=== PATIENT | female | born 1995 | race Caucasian/White ===

== ENCOUNTER 2025-03-02 12:11 | Outpatient (CLI) | payer BC, SELFPAY ==
[2025-03-02 12:34] LABS: Hematocrit 39.2 % (37.0-47.0); Hemoglobin 13.0 g/dL (12.0-15.0); Immature Granulocyte Percent A 2.6 % (0-0.5); Lymphocytes Absolute Auto 2.37 K/mm3 (0.9-3.2); Mean Corpuscular HGB Conc 33.2 g/dl (32-36); Mean Corpuscular Hemoglobin 29.5 pg (26-34); Mean Corpuscular Volume 88.9 fl (80-100); Nucleated Red Blood Cells Absolute Auto 0.000 K/mm3 (0.0-0.012); Nucleated Red Blood Cells Perc 0.0 % (0.0-0.2); Platelet Count Result 241 k/mm3 (150-375); Red Blood Count 4.41 M/mm3 (4.2-5.4); White Blood Count 12.3 K/mm3 (4.5-10.0)
[2025-03-02 12:54] LABS: Alanine Aminotransferase 11 U/L (6-35); Albumin Level 3.5 g/dL (3.5-5.1); Alkaline Phosphatase 98 U/L (38-126); Anion Gap 8 mmol/L (4-12); Aspartate Amino Transferase 19 U/L (14-36); Bilirubin,Total 0.3 mg/dL (0.2-1.3); Blood Urea Nitrogen 6 mg/dL (7-17); Calcium 9.3 mg/dL (8.4-10.2); Carbon Dioxide 19 mmol/L (22-30); Chloride 108 mmol/L (98-107); Estimated Glomerular Filt Rate > 60; Glucose 114 mg/dL (65-110); Potassium 3.9 mmol/L (3.4-5.0); Sodium 135 mmol/L (137-145); Total Protein 6.6 g/dL (6.3-8.2); Uric Acid 4.1 mg/dL (2.5-7.5)
== END 2025-03-02 12:12 | disposition home or self-care (01) ==
LOC: ANHLAB 12:18
PROVIDERS: Visit Provider Advanced Practice Midwife
DX: O13.9 Gestational [pregnancy-induced] hypertension without significant proteinuria, unspecified trimester (principal); Z3A.00 Weeks of gestation of pregnancy not specified
CPT/HCPCS: 36415; 80053; 84550; 85025

== ENCOUNTER 2025-03-06 13:42 | Observation (INO) | payer BC, SELFPAY ==
--- NOTE | 2025-03-06 13:42 | OBADM ---
This patient, Moris Salazar, admitted to the OB room [facility] Post [facility] for observation. Patient/family oriented to hospital policies and general routines including ID bracelet, bed and alarms, visiting hours, pain management, procedures, bathroom and other care routines, personal items, smoking policy, room service/diet, and visiting hours. Patient/Family are encouraged to report perceived risks to care and to ask questions if they do not understand what they are told or what they should do.
[2025-03-06 14:13] VITALS: BP 132/82; PULSE 95
[2025-03-06 14:28] VITALS: BMI 37.1
[2025-03-06 14:37] LABS: Add Urine Microscopic? YES; Appearance Urine Clear (Clear); Glucose Urine UA Negative (Negative); Leukocyte Esterase Ur Trace LEU/UL (Negative); Need Manual Microscopic Reviewed; Nitrate Urine Negative (Negative); Non Pathogenic Casts 0-2; Specific Grav Ur 1.015 (1.001-1.035)
--- NOTE | 2025-03-07 07:35 | PM.OBTRLD ---
OB - Triage/Final Diagnosis Visit Information Date of evaluation: 03/06/25 Reason for evaluation: threatened labor Comments/Additional reasons for admission: I have assessed the risk for this patient, Moris Salazar, and determined that she would benefit from observation care. Evaluation Laboratory results: Laboratory Tests 03/06/25 14:06 Urine Color Yellow Urine Appearance Clear Urine pH 6.0 Ur Specific [place] 1.015 Urine Protein Negative Urine Glucose (UA) Negative Urine Ketones Negative Ur Blood (Man) Negative Urine Nitrate Negative Urine Bilirubin Negative Urine Urobilinogen 0.2 Ur Leukocyte Esterase Trace H Add Ur Microanalysis Reviewed Urine RBC 0-2 Urine WBC 6-10 H Ur Squamous Epith Cells Few Urine Bacteria 2+ H Urine Casts 0-2 Vital signs: Vital Signs - 24 hr 03/06/25 14:13 03/06/25 14:28 Pulse Rate 95 Blood Pressure 132/82 Oxygen Delivery Room Air
== END 2025-03-06 15:25 | disposition home or self-care (01) ==
PROVIDERS: Advanced Practice Midwife; Admitting Provider Obstetrics & Gynecology; Visit Provider Obstetrics & Gynecology
DX: O47.03 False labor before 37 completed weeks of gestation, third trimester (principal); Z3A.35 35 weeks gestation of pregnancy
CPT/HCPCS: 81001; 87086; G0378; G0379

== ENCOUNTER 2025-03-14 00:01 | Inpatient (IN) | payer BC, SELFPAY ==
[2025-03-14] VITALS (368 sets, daily range): BP systolic 90–201; BP diastolic 43–187; PULSE 61–173; TEMP 36.1–37.4; O2SAT 83–100; BMI 37.5
[2025-03-14 01:25] LABS: Hematocrit 42.1 % (37.0-47.0); Hemoglobin 14.1 g/dL (12.0-15.0); Immature Granulocyte Percent A 2.0 % (0-0.5); Lymphocytes Absolute Auto 2.94 K/mm3 (0.9-3.2); Mean Corpuscular HGB Conc 33.5 g/dl (32-36); Mean Corpuscular Hemoglobin 29.6 pg (26-34); Mean Corpuscular Volume 88.3 fl (80-100); Nucleated Red Blood Cells Absolute Auto 0.000 K/mm3 (0.0-0.012); Nucleated Red Blood Cells Perc 0.0 % (0.0-0.2); Platelet Count Result 225 k/mm3 (150-375); Red Blood Count 4.77 M/mm3 (4.2-5.4); White Blood Count 12.9 K/mm3 (4.5-10.0)
[2025-03-14 01:29] LABS: Alanine Aminotransferase 15 U/L (6-35); Albumin Level 3.6 g/dL (3.5-5.1); Alkaline Phosphatase 105 U/L (38-126); Anion Gap 8 mmol/L (4-12); Aspartate Amino Transferase 26 U/L (14-36); Bilirubin,Total 0.3 mg/dL (0.2-1.3); Blood Urea Nitrogen 10 mg/dL (7-17); Calcium 9.6 mg/dL (8.4-10.2); Carbon Dioxide 17 mmol/L (22-30); Chloride 106 mmol/L (98-107); Estimated Glomerular Filt Rate > 60; Glucose 105 mg/dL (65-110); Potassium 4.0 mmol/L (3.4-5.0); Sodium 131 mmol/L (137-145); Total Protein 7.1 g/dL (6.3-8.2); Uric Acid 5.2 mg/dL (2.5-7.5)
--- NOTE | 2025-03-14 01:45 | WPDOBADMIT ---
Obstetrics - Admit Note Admission Note: record reviewed. No pertinent additions to the history and/or any subsequent changes in the physical findings that are not consistent with the expected course of the were found. Additions to the history and/or subsequent changes in the physical findings follow. IOL GHTN, anticipate vaginal delivery
[2025-03-14 02:01] LABS: Syphilis IgG/IgM Antibody Non-Reactive (Nonreactive)
--- NOTE | 2025-03-14 07:55 | PM.OBPNLAB ---
Pain Control Date/time seen: 03/14/25 07:55 Comments: SVE /-1 AROM moderate amount of clear odorless fluid, FHR category 1 contractions irregular
--- NOTE | 2025-03-14 08:13 | LDADM ---
This patient, Moris Salazar, was admitted to Labor/Delivery/Recovery 104 on 03/14/25 at 00:01. Plans for labor, pain management and were discussed with patient. Patient/family oriented to hospital policies and general routines including ID bracelet, bed and alarms, visiting hours, pain management, procedures, bathroom and other care routines, personal items, smoking policy, room service/diet and guest tray routines, security routines, and visiting hours. Patient/Family are encouraged to report perceived risks to care and to ask questions if they do not understand what they are told or what they should do. See OBIX for further documentation.
[2025-03-14] MEDS: LACTATED RINGERS 1,000 ML 125 ML IV CONT ×3 (09:49→20:18)
[2025-03-14] MEDS: OXYTOCIN 30 UNITS/NS 500 ML 30 UNITS/500 ML BAG IV CONT (09:50)
--- NOTE | 2025-03-14 10:19 | P.PNAN_ITS ---
Anes - Initial Pre Proc Eval Procedure: labor epidural Date/Time: 03/14/25 10:19 Surgeon: Rico Clifton MD Pre Op Diagnosis: labor pain Pre Op Diagnosis: IOL Patient Data Age: 30 Gender: F Height: 1.68 m Weight: 105.5 kg Last Vital Signs Temp 36.9 C 03/14/25 09:53 Pulse 79 03/14/25 10:01 BP 134/66 03/14/25 10:01 Pulse Ox 100 03/14/25 10:15 O2 Del Method Room Air 03/14/25 08:01 Allergies Allergy/AdvReac Type Severity Reaction Status Date / Time No Known Allergies Allergy Verified 03/14/25 08:09 Home Medications ?Medication ?Instructions ?Recorded ?Confirmed ?Type famotidine 10 mg tablet (Acid 10 mg PO DAILY 03/06/25 03/14/25 History Controller) vit no.95-ferrous 1 tablet PO DAILY 03/06/25 03/14/25 History fumarate 28 mg-folic acid 800 mcg tablet () sumatriptan succinate 25 mg tablet 25 mg PO .every 8 h rs prn 03/06/25 03/14/25 History valacyclovir 500 mg tablet 500 mg PO DAILY 03/06/25 History Laboratory Tests 03/14/25 03/14/25 03/14/25 00:45 00:45 02:09 WBC 12.9 H K/mm3 (4.5-10.0) RBC 4.77 M/mm3 (4.2-5.4) Hgb 14.1 g/dL (12.0-15.0) Hct 42.1 % (37.0-47.0) MCV 88.3 fl (80-100) MCH 29.6 pg (26-34) MCHC 33.5 g/dl (32-36) RDW 14.1 % (11.5-14.5) Plt Count 225 k/mm3 (150-375) MPV 11.9 H fl (7.4-10.4) Immature Gran % (Auto) 2.0 H % (0-0.5) Neut % (Auto) 68.4 % (45.5-73.1) Lymph % (Auto) 22.7 % (18.3-44.2) [place] % (Auto) 5.4 % (2.6-8.5) Eos % (Auto) 1.0 % (0-4.4) Baso % (Auto) 0.5 % (0.2-1.2) Lymph # (Auto) 2.94 K/mm3 (0.9-3.2) Moffat # (Auto) 0.7 H K/mm3 (0.1-0.6) Eos # (Auto) 0.1 K/mm3 (0-0.3) Baso # (Auto) 0.1 K/mm3 (0.0-0.1) Abs Immat Gran (auto) 0.26 H K/mm3 (0.00-0.031) Absolute Neuts (auto) 8.8 H K/mm3 (1.3-6.7) Absolute Nucleated RBC 0.000 K/mm3 (0.0-0.012) Nucleated RBC % 0.0 % (0.0-0.2) Sodium 131 L mmol/L (137-145) Potassium 4.0 mmol/L (3.4-5.0) Chloride 106 mmol/L (98-107) Carbon Dioxide 17 L mmol/L (22-30) Anion Gap 8 mmol/L (4-12) BUN 10 mg/dL (7-17) Creatinine 0.63 L mg/dL (0.7-1.0) Estim Creat Clear Calc Not Reportable Estimated GFR > 60 (59 - ) Glucose 105 mg/dL (65-110) Uric Acid 5.2 mg/dL Cancelled (2.5-7.5) Calcium 9.6 mg/dL (8.4-10.2) Total Bilirubin 0.3 mg/dL (0.2-1.3) AST 26 U/L (14-36) ALT 15 U/L (6-35) Alkaline Phosphatase 105 U/L (38-126) Total Protein 7.1 g/dL (6.3-8.2) Albumin 3.6 g/dL (3.5-5.1) Syphilis IgG/IgM Ab Non-reactive (Nonreactive) Blood Type A Positive Antibody Screen Negative Patient hx anesthesia problems: none Family hx anesthesia problems: none Results Review: All pre-operative results and documents have been reviewed as part of the pre- operative evaluation. [facility] Family History Family History (Updated 03/14/25 @ 08:15 by Sary Pires RN) Grandparent Breast cancer Diabetes mellitus Other No pertinent family history in first degree relatives Social History Social History Smoking status: Never smoker Second hand tobacco smoke exposure: No Substance use: never Lack of Transportation: No Lack of Food: Never True Current Housing: I Have Housing Concerned About Future Housing: No Difficulty Paying Gas/Electric Bills: No Difficulty Paying for Meds: No Currently Unemployed: No Education: Associate Degree Difficulty w/ Childcare or Family Care: No Spiritual care concerns: No Anes - Eval Final PreProcedure Day of Procedure 03/14/25 10:19 Patient weight: obese ASA classification: II Anesthetic plan: proceed Anesthesia type and monitoring: regional epidural and standard monitoring Results Review: All pre-operative results and documents have been reviewed as part of the pre- operative evaluation. Informed Consent: The patient's anesthetic plan and its attendant risks and benefits were discussed with the patient/family/POA. Questions were solicited and answers provided to the satisfaction of the patient/family/POA.
[2025-03-14] MEDS: ONDANSETRON INJ 4 MG/2 ML VIAL IV PUSH ×2 (10:54→17:43)
[2025-03-14] MEDS: ACETAMINOPHEN 500 MG TABLET 1000 MG PO (17:45)
[2025-03-15] VITALS (42 sets, daily range): BP systolic 91–139; BP diastolic 56–98; PULSE 66–227; RESP 16–18; TEMP 36.8–37.1; O2SAT 78–100
[2025-03-15] MEDS: ACETAMINOPHEN 500 MG TABLET 1000 MG (00:20)
[2025-03-15] MEDS: ONDANSETRON INJ 4 MG/2 ML VIAL IV PUSH (00:20)
--- NOTE | 2025-03-15 02:14 | PM.OBPRVD ---
OB - Vaginal Delivery Note Procedure Delivery date: 03/15/25 Events: Gestational Hypertension Induction method: AROM, Per Misoprostol Protocol and Per Pitocin Protocol Delivery monitor: External FHT and Internal FHT Route of delivery: Episiotomy description: None Laceration Description: Labial (bilateral) Delivery repair: vicryl (right side only) Specimen: No Quantitative Blood Loss (ml): 100 Anesthesia type: Epidural Disposition: Floor Complications: No immediate complications [place] Baby Date of : 03/15/25 Time of : 01:52 Gestational Age by Date: 37 Infant gender: Male Weight (pounds): 7 Weight (ounces): 3 presentation: vertex position: Left Occiput Anterior Placenta delivery description: Expressed Cord Vessel Description: 3 Vessels, Nuchal Cord (x1) and Delayed Cord Clamping score one minute: 8 score five minutes: 9
[2025-03-15] MEDS: OXYTOCIN 30 UNITS/NS 500 ML 30 UNITS/500 ML BAG 125 UNITS IV CONT (02:30)
[2025-03-15] MEDS: IBUPROFEN 600 MG TABLET PO ×2 (03:45→15:59)
[2025-03-15] MEDS: BENZOCAINE 20% AER SPR (*SP) 56 GM CAN 1 SPRAY TOPICAL (05:30)
[2025-03-15] MEDS: WITCH HAZEL 40 PADS 1 PAD TOPICAL (05:30)
[2025-03-15] MEDS: MULTIVIT/MIN/PREN/FOL AC/IRON TABLET 1 TAB PO (09:39)
[2025-03-15] MEDS: ACETAMINOPHEN 325 MG TABLET 650 MG PO ×2 (09:39→19:13)
[2025-03-15] MEDS: DOCUSATE SODIUM 100 MG CAPSULE PO ×2 (09:39→16:00)
--- NOTE | 2025-03-15 13:40 | PC.NURSE ---
1000. Introductions were made, then consulted with patient to assess needs related to . Discussed with mother her plans to feed her infant and the experience so far. Encouraged mother to express any questions or concerns she has regarding feedings. Mom reports she used a nipple shield with her first feeding due to having flat nipples, and it helped her latch her . The infant was showing feeding cues so we attempted to latch the . Infant struggled to latch without the shield. Mom attempted again with the shield and had a successful latch. The infant went on to feed at the breast for 30 min with no pain to mom. Advised her to call out for a latch check or if she needs assistance waking or positioning baby. Reviewed the blue feeding worksheet for required output and feeding at least 8-12 times every 24 hours. Resources provided for inpatient and outpatient services with the feeding sheet, mom/baby guide, and name/number written on the communication board. Mother voiced understanding of information and will call if there is a request for assistance. Reported to the Primary RN?
[2025-03-16] MEDS: IBUPROFEN 600 MG TABLET PO ×4 (00:46→23:17)
[2025-03-16 04:25] VITALS: BP 99/66; PULSE 83; RESP 16; O2SAT 96
[2025-03-16 05:10] LABS: Hematocrit 31.4 % (37.0-47.0); Hemoglobin 10.3 g/dL (12.0-15.0)
[2025-03-16 07:55] VITALS: BP 102/56; PULSE 75; RESP 18; TEMP 36.9; O2SAT 98
--- NOTE | 2025-03-16 08:07 | P.PNOB_ITS ---
OB - PN: Subj Subjective Date/time seen: 03/16/25 08:07 Interval history: pp day 1 doing well OB - PN: Obj Data Labs 03/16/25 03:40 03/14/25 00:45 Labs: Laboratory Results - last 24 hr 03/16/25 03:40 Hgb 10.3 L D Hct 31.4 L OB - PN A/P Plan day: 1 Plan: routine care Time Spent With Patient Time: Total time spent is greater than 50% in coordination of care (as documented) at patient's floor/unit and/or counseling patient: Review of Systems 2 Review of Systems: All systems reviewed & are unremarkable except as noted in HPI and below Exam 2 Const: General: cooperative, healthy appearing and comfortable Resp: Effort & Inspection: normal respiratory effort GI: Other: soft Skin: General skin exam: normal color
[2025-03-16] MEDS: DOCUSATE SODIUM 100 MG CAPSULE PO (08:40)
[2025-03-16] MEDS: MULTIVIT/MIN/PREN/FOL AC/IRON TABLET 1 TAB PO (08:40)
[2025-03-16] MEDS: ACETAMINOPHEN 325 MG TABLET 650 MG PO ×3 (08:40→23:17)
--- NOTE | 2025-03-16 14:28 | PC.NURSE ---
1310. Introductions were made, then consulted with patient to assess needs related to . Discussed with mother her plans to feed her and the experience so far. Mom states feedings are going well so far, she states she hears infant swallowing during her sessions. She also reports no pain with feedings, but uses the nipple shield at times to assistance with latching. She is currently still pumping when she uses the nipple shield. Resources provided for inpatient and outpatient services with the feeding sheet, mom/baby guide and name written on the communication board. Mother voiced understanding of information and will call if there is a request for assistance. Reported to the Primary RN.?
[2025-03-16 14:30] VITALS: BP 121/69; PULSE 76; RESP 16; TEMP 36.6; O2SAT 97
[2025-03-16 19:34] VITALS: BP 135/83; PULSE 78; RESP 18; TEMP 36.2; O2SAT 99
[2025-03-16 23:55] VITALS: BP 120/74; PULSE 89
[2025-03-17 03:59] VITALS: BP 111/79; PULSE 82
[2025-03-17] MEDS: IBUPROFEN 600 MG TABLET PO ×2 (05:42→12:44)
[2025-03-17] MEDS: ACETAMINOPHEN 325 MG TABLET 650 MG PO ×2 (05:42→12:44)
--- NOTE | 2025-03-17 07:51 | P.PNOB_ITS ---
OB - PN: Subj Subjective Date/time seen: 03/17/25 07:51 Interval history: pp day 2 doing well desires d/c home OB - PN: Obj Data Labs 03/16/25 03:40 03/14/25 00:45 OB - PN A/P Plan day: 2 Plan: routine care and discharge home Time Spent With Patient Time: Total time spent is greater than 50% in coordination of care (as documented) at patient's floor/unit and/or counseling patient: Review of Systems 2 Review of Systems: All systems reviewed & are unremarkable except as noted in HPI and below Exam 2 Const: General: cooperative, healthy appearing and comfortable Resp: Effort & Inspection: normal respiratory effort Cardio: Rate: regular rate GI: Inspection: normal to inspection Back/Spine/Pelvis: Back: no CVA tenderness Skin: General skin exam: normal color Neuro: General: oriented to person, oriented to place and oriented to time Extrem: General: normal to inspection
--- NOTE | 2025-03-17 07:54 | PM.OBDSVD ---
DS: Admitting Diagnosis Discharge Date 03/17/25 Admitting Diagnosis IOL, GHTN DS: Discharge Diagnosis Discharge Diagnosis (1) (normal spontaneous vaginal delivery): Code(s): O80 - Encounter for full-term uncomplicated delivery Status: Acute OB - DS: Summary OB Procedures : None OB Procedures Intrapartum: Spontaneous Vag Delivery OB Procedures: : None Peripartum Data Laceration Description: Labial (bilateral) Episiotomy description: None Time Spent with Patient Time attestation: Total time spent providing and/or coordinating discharge services: Discharge Plan Discharge Attending physician on discharge: Rico Clifton Consulting providers: Apple Pierce Discharging Clinician: Apple Pierce Patient Disposition: Home Activity: pelvic rest Diet: regular Patient Instructions: Antibiotic Form Patient Language: Indonesian Stand Alone Forms: General Discharge Information Follow-up/Referrals: Apple Pierce, CNM [Certified Nurse Processing Mgr, SOLID TIRE TUBER MACHINE OPERATOR] - 4 Weeks Discharge Medications: Continued PNV no.95-ferrous fumarate-FA [] 28 mg iron- 800 mcg tablet 1 tablet PO DAILY Discontinued sumatriptan succinate 25 mg tablet 25 mg PO .every 8 hrs prn valacyclovir 500 mg tablet 500 mg PO DAILY famotidine [Acid Controller] 10 mg tablet 10 mg PO DAILY Date of admission: 03/14/25 00:01 Primary Care Provider: PHYSICIAN,REVENUE INSPECTOR Admitting Provider: Rico Clifton Attending physician on admission: Rico Clifton Condition: Stable
[2025-03-17 08:28] VITALS: BP 117/70; PULSE 81; RESP 16; TEMP 36.8; O2SAT 98
[2025-03-17] MEDS: MULTIVIT/MIN/PREN/FOL AC/IRON TABLET 1 TAB PO (08:45)
--- NOTE | 2025-03-17 08:45 | PC.NURSE ---
Met with patient regarding needs. She states that baby was very sleepy last night which may be due to increased jaundice. She has used the nipple shield on occasion but not recently. She is encouraged to pump after any feeding with the shield or if she has any feedings that are sleepy or ineffective. She has her Spectra pump and was provided with anticipatory guidance on milk production and behavior in the first days . She states that infant has been feeding for about thirty minutes per feeding, all on one breast. She is encouraged to offer the second breast if infant desires but understands that one sided feedings are typical at this time. Parents are advised to call out for any assistance needed.
[2025-03-17 11:50] VITALS: BP 133/78; PULSE 89; RESP 16; TEMP 37; O2SAT 97
[2025-03-19 15:19] VITALS: BP 130/85; PULSE 76; RESP 18; TEMP 36.6; O2SAT 99
== END 2025-03-17 14:45 | disposition home or self-care (01) | DRG 768 ==
LOC: ANHLDR 00:08 → ANHOB2 03-15 05:55
PROVIDERS: Advanced Practice Midwife; Admitting Provider Obstetrics & Gynecology; Visit Provider Obstetrics & Gynecology
DX: O13.4 Gestational [pregnancy-induced] hypertension without significant proteinuria, complicating childbirth (principal); Z37.0 Single live birth; Z3A.37 37 weeks gestation of pregnancy; O69.81X0 Labor and delivery complicated by cord around neck, without compression, not applicable or unspecified; O70.0 First degree perineal laceration during delivery
CPT/HCPCS: 36415; 80053; 84550; 85014; 85018; 85025; 86593; 86850; 86900; 86901; A9270; J2405; J2590; J2795; J7120

== ENCOUNTER 2025-03-21 13:04 | Outpatient (RCR) | payer BC, SELFPAY ==
--- NOTE | 2025-03-21 15:14 | PC.NURSE ---
In- 1215 Out- 1315 Reason for visit: unable to maintain latch, mother wants to breastfeed and not supplement History: Moris had a vaginal delivery after being induced for gestational hypertension on 03/15/25. She had an uncomplicated and delivered at 37 weeks. She has had no recent illnesses, does not take any medications, and has been getting adequate fluids/diet. She has been using her hand pump and spectra pump, but questions whether she has the correct size flange. This is her first baby, and upon discharge from the hospital she was using a nipple shield with and pumping. She reports she is only able to get about a half oz of milk while pumping with her spectra, but is able to get 5oz with her hand pump. She reports some pain with pumping with the spectra but not the hand pump. We remeasured her to get the correct flange size and brought her up a size on her spectra. We were also able to increase the suction on her pump to allow for better nipple stretching. She was able to pump a total of 3.5 oz after baby fed at the breast for 20 min. Mom states she has been mostly bottle feeding the last few days bc has not been interested in latching on the breast, she states he just falls asleep. Mom states she has been pumping every other feeding for 15 min. History: Valeriy was delivered at 37 weeks gestation. At his lowest weight he dropped below the 10% of his body weight [place]. He currently gaining weight and under the 10% threshold. He was seen at his follow up appointment on wednesday03/19/25 and had a repeat tcb done that was 13. They also followed up with Dr Castaneda yesterday 03/20/25 with no major concerns with jaundice levels and no other complications. They are planning to follow up in a week for another weight check. Baby Valeriy is sleepy but wakes easily during a diaper change with a loud cry. His facial muscles appear symmetrical and also appears to have free movement with his tongue in and out of his mouth. When he is brought to the breast, he roots and tries to grasp at the breast. He attempts to latch himself but is unsuccessful. Mom states that they usually have to wake Valeriy every 3 hours to feed and it is a struggle often to keep him awake and feed for a solid 20 min. Observations: Moris works well with her , she needed assistance and education on bringing the baby closer to the breast to allow a deeper latch. She also needed education on holding the infant behind the neck between the shoulder blades and not on the back of the head. Mom stated that she likes to feed in football position due to the larger size of her breasts. Mom was given re-instruction on how to hold her breast and offer it to the infant in a way that he could latch to easiest. Marlen mayo opens with a wide gape when offered the breast, but often rolls his upper lip and releases the latch after a few sucks. When mom latches infant with a nipple shield he was able to maintain and appropriate latch and feed at the breast for 20 min in a rhythmic cycle. It was also suggested to try to offer some breast milk first to infant if he is really fussy or frustrated with trying at the breast to help him relax at the breast. Encouraged mom that it is okay for her to use the shield to allow baby to have time at the breast. We discussed that when using a shield it is important to also pump to protect her milk supply, and that it is possible to wean baby from the shield in time. We weighed baby after the feeding and he had a total transfer of 17mls. We discussed that this is not effective enough in meeting his caloric needs for the day, so mom was encouraged to supplement after until baby is satisfied. We discussed pumping will help protect her milk supply and as baby gets bigger and more effective at removing milk she may be able to go back to just exclusively with time and coaching from a CLC. We reviewed proper cleaning and use of the nipple shield. Mom was content with this plan and verbalized understanding. weight: 7-3 Lowest weight: 6-5.8 Last weight: 6-14 Pre-feed weight: 6-11.3, 3043g Post-feed weight: 6-11.9, 3060g Plan of Care: Moris was encouraged to continue at the breast to keep baby practicing and growing in his abilities. Mom is aware she should continue using the nipple shield as long as she needs to keep her practicing at the breast. She may begin to attempt to wean him from the shield whenever she is ready and when she feels baby is also ready.She will also move onto supplementing and pumping when is unsuccessful and until is able to transfer larger quantities of milk. Mom states she plans to purchase an scale to be able to do weighted feeds at home. Mom will continue to use her pump and protect her milk supply. Follow up plans: She is aware she can call the team to ask questions or voice concerns, as well as make another follow up appointment anytime. Marlen mayo will see his banquet server in a week for a follow up visit. Patient was provided with educational handouts, and the correct size flanges for her pump.
== END 2025-06-19 23:59 | disposition home or self-care (01) ==
LOC: ANHOBOP 13:04
PROVIDERS: Visit Provider Pediatrics
DX: Z39.1 Encounter for care and examination of lactating mother (principal)
CPT/HCPCS: 99212; G0463